=== PATIENT | male | born 1935 | race Caucasian/White ===

== ENCOUNTER 2017-11-01 05:20 | Day surgery (SDC) | payer OTHER, BC ==
[~2017-11-01] VITALS: Ht 193 cm; Wt 106.6 kg
--- NOTE | ~2017-11-01 | O ---
[facility] [place] [address] OPERATIVE REPORT Name: LIA HAWTHORNE Room #: DEP [facility]#: [id number] Admission: 11/01/17 Attend Phys: Wily Stone MD, F Discharge: 11/01/17 Date of : 35 Report #: [id number] THIS REPORT FOR: //name// CC: Bobby Gordo Stone DATE OF SERVICE: 11/01/2017 SURGEON: Wily Stone MD MARKETING DIRECTOR ASSISTED LIVING: Telma Orta NP PREOPERATIVE DIAGNOSIS: Symptomatic cholelithiasis. POSTOPERATIVE DIAGNOSIS: Symptomatic cholelithiasis, incarcerated umbilical hernia. PROCEDURE: Laparoscopic cholecystectomy with intraoperative cholangiogram, laparoscopic primary repair of incarcerated umbilical hernia. ANESTHESIA: General endotracheal anesthesia and local anesthetic. ESTIMATED BLOOD LOSS: 10 mL. SPECIMEN: Gallbladder. COMPLICATIONS: None appreciated. INDICATIONS FOR PROCEDURE: This is an 82-year-old male patient who developed acute onset right upper quadrant abdominal pain. He was seen in the [facility] Emergency Room where he was found to have cholelithiasis and sludge without sonographic evidence for acute cholecystitis. This occurred several weeks ago. Since that time, the patient has been relatively asymptomatic. He presents today for laparoscopic cholecystectomy with cholangiogram. OPERATIVE FINDINGS: Upon entrance into the abdominal cavity, the liver, stomach, small bowel and colon and the surrounding area appeared otherwise normal. The gallbladder itself was without acute inflammatory changes; however, some mild chronic changes were present. The critical view consisting of the cystic artery, cystic duct and lower edge of the gallbladder forming a window through which the liver was visible was seen prior to clipping the cystic duct for cholangiogram. The cholangiogram was normal without filling defects. Contrast flowed freely into the duodenal sweep and the biliary radicles appeared normal. After division of the cystic duct, 3 clips remained on the cystic duct stump. During removal of the gallbladder from the abdominal [facility] [address] [place] [address] OPERATIVE REPORT Name: LIA HAWTHORNE Room #: DEP [facility]#: [id number] Admission: 11/01/17 Attend Phys: Wily Stone MD, F Discharge: 11/01/17 Date of : 35 Report #: [id number] cavity, a small umbilical hernia defect incarcerated with a small amount of omentum was identified. This was amenable to primary repair with a separate figure-of-8 PDS suture. In addition, a small capsular tear of the liver was present that likely occurred with retraction of the gallbladder, located at the insertion of the falciform ligament on the liver. This required 5 mL of Surgiflo to ensure hemostasis. At the conclusion of the operation, the sponge, needle, and instrument counts were correct. The gallbladder was opened on the back table. Several small pigmented stones were seen within the gallbladder. DESCRIPTION OF PROCEDURE IN DETAIL: After the risks, benefits, and expectations of the operation were discussed in detail with the patient, informed consent was obtained. The patient was identified in the preoperative holding area. He was given IV antibiotics as documented in the chart in line with SCIP metrics. The patient was then taken to the operating room and he was placed in the supine position. SCDs were placed on the patient's bilateral lower extremities and pneumatic compression was initiated. The patient was then given IV sedation and he was intubated without incident. A time-out was performed to identify the correct patient and procedure after prepping and draping the patient in the standard sterile fashion. Local anesthetic was infiltrated into the skin and subcutaneous tissue supraumbilically where a curvilinear incision was made with a #15 blade scalpel. Dissection was carried down to the fascia. A small transverse fascial incision was made. The 11 mm Visiport was placed intraperitoneally with a 0-degree angled laparoscope. Pneumoperitoneum was achieved with insufflation of carbon dioxide to 15 mmHg. A 30-degree angled laparoscope was then inserted. A subxiphoid 5 mm and right subcostal 5 mm ports x 2 were placed under direct visualization after local anesthetic was infiltrated into the skin and subcutaneous tissue and appropriately sized incisions were made. Operative findings are as noted above. The dome of the gallbladder was retracted in a cephalad direction. The gallbladder peritoneum was then scored medially and laterally after taking down the chronic adhesions from the omentum to the gallbladder. A critical view consisting of the cystic artery and cystic duct was then visualized as noted above. A clip was placed on the cystic duct at its junction with the neck of the gallbladder. A ductotomy was created and a cholangiocatheter was inserted. The cholangiogram findings are as noted above. The cholangiocatheter was then removed. The cystic duct was triply clipped distal to the ductotomy and divided at the ductotomy with the ultrasonic dissector with a good seal on the duct. The cystic artery was divided with the ultrasound dissector with good hemostasis. The gallbladder was then dissected out of the liver bed. The gallbladder was placed in an Endopouch and removed through the supraumbilical port site. The 0 PDS suture was then placed to close the port site fascial defect. [address] [address] OPERATIVE REPORT Name: LIA HAWTHORNE Room #: DEP [facility]#: [id number] Admission: 11/01/17 Attend Phys: Wily Stone MD, F Discharge: 11/01/17 Date of : 35 Report #: [id number] The herniated omentum in the defect identified during removal of the gallbladder was then reduced. There was no bowel involvement. A figure-of-8 0 PDS suture was used to close the defect through a separate stab incision with the Isiah-Marie laparoscopic fascial closure device. The suture was tied under direct visualization to ensure no incorporation of intraabdominal content into the defect. The port site fascial suture was tagged and the port was replaced. The liver was then examined for hemostasis. The liver bed itself appeared normal; however, examination of the area where the falciform ligament inserted in the liver showed a small capsular tear with bleeding. This was hemostatic and not actively bleeding. The blood was suctioned from the area. Decision was made to apply Surgiflo (hemostatic agent) to the area with good hemostasis. No other significant intra-abdominal pathology was seen. The suture was tied under direct visualization to ensure no incorporation of intra-abdominal content. The abdominal cavity was then desufflated and the ports were removed. Interrupted subcuticular 4-0 Monocryl sutures and Dermabond were used to close the skin incisions. The patient tolerated the procedure well. He was awakened, extubated, and taken to recovery room in stable condition with no apparent intraoperative complications. <ELECTRONICALLY SIGNED> By: Wily Stone MD, FACS 11/04/17 1713 [id number] Wily Stone MD, FACS /nt
--- NOTE | ~2017-11-01 | S ---
[facility] [place] [address] SURGICAL PATH RPT PROCEDURE Name: GARCIA MEYER Room #: DEP [facility]#: [id number] Admission: 11/01/17 Date of : 35 Discharge: 11/01/17 Report #: [id number] Path Case #: [id number] PATHOLOGY REPORT COLLECTION DATE: 11/01/2017 RECEIVED DATE: 11/01/2017 SUBMITTING PHYS: Dr. Wily Stone OTHER PHYS: Dr. Bobby Caro SPECIMEN(S) RECEIVED: A.Gallbladder B.Contents incarcerated umbilical hernia * * * * * * * * * * * * FINAL DIAGNOSIS: A. Gallbladder, cholecystectomy: - Mild chronic cholecystitis. - Cholelithiasis. B. 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 (IUV:mgr; 11/02/2017) PATHOLOGIST: Kristin Ramon M.D. REPORT ELECTRONICALLY SIGNED BY: Kristin Ramon M.D. DATE/TIME: 11/02/2017 15:04 * * * * * * * * * * * * GROSS PATHOLOGY: A. Received in formalin labeled "Garcia Meyer, gallbladder," is a 6.5 x 4.4 x 1.1 cm, previously opened gallbladder with green wilson serosal surfaces. The opened gallbladder reveals wilson-brown to green mucosa and an average wall thickness of 0.2 cm. Multiple black smooth and gravel-like calculi are present measuring up to 1.5 cm and no masses are noted grossly. [employer] Conveyor Operator sections from the body and fundus are submitted along with the proximal margin in cassette A1. B. Received in formalin labeled "aGrcia Meyer, contents incarcerated umbilical hernia," is a segment of fibroadipose tissue measuring 5.5 x 3.3 x 1.5 cm. No nodules or lesions are identified. Ash Conveyor Operator tissue is submitted in cassette B1. (SDY; 11/01/2017) CLINICAL HISTORY: Symptomatic cholelithiasis [address] [address] SURGICAL PATH RPT PROCEDURE Name: GARCIA MEYER S Room #: [facility] M.R.#: [id number] Admission: 11/01/17 Date of : 35 Discharge: 11/01/17 Report #: [id number] Path Case #: [id number] INITIAL CPT CODE(S): A; 74910 B; 11998 Professional services performed by [facility] at [address] , [place] [address] Technical services performed by [facility] at [address] [place] [address], [place] [address] [address]. [facility] [address] [place] [address] PHONE: [phone] DIRECTOR: Brent Ghosh M.D. * * * END OF REPORT * * *
[~2017-11-01 05:20] MED LIST: ADVIL PM CAPLE1 EACH PO; ALEVE220 M1 PO; ASPIRIN81 M2 PO; BENADRYL25 MG PO; BRINTELLIX20 MG PO; CALCIUM 500 +1 EAC6 PO; CELEBREX 200 M200 M1 PO; CO Q-10100 M1 PO; COZAAR 50 MG TA50 M1 PO; FISH OIL + D31 EACH PO; GLUCOSAMINE H1500 MG PO; HYDROCODON-ACE1 EAC7 PO; LOVASTAT20 PO; MULTIVITAM9 MG/15 M1 PO; NORCO 10-325 T1 EACH PO; OXYCODONE HCL 55 MG PO; OXYCONTIN10 M1 PO; PANTOPRAZOLE SO40 M1 PO; PROBIOTIC1 EAC2 PO; SELENIMIN200 MCG PO; TAMSULOSIN HCL0.4 MG PO; TOPROL XL25 MG PO; TRAZODONE 150150 M1 PO; TRAZODONE HCL50 MG PO; TYLENOL PM EX-1 EACH PO; Trazodone HCL PO; UNICOMPLEX M TA1 TA1 PO; VITAMIN B-121000 MC3 PO; VITAMIN D31 ML PO; VITAMIN D35000 UNIT PO
[2017-11-01 07:10] VITALS: BP 122/79
[2017-11-01 09:42] VITALS: BP 122/79
== END 2017-11-01 10:35 | disposition home or self-care (01) ==
LOC: OR 05:20 → TBA 05:21 → OR 10:35
DX: K80.10 Calculus of gallbladder with chronic cholecystitis without obstruction (principal); K42.0 Umbilical hernia with obstruction, without gangrene; I10 Essential (primary) hypertension; G47.33 Obstructive sleep apnea (adult) (pediatric); E78.00 Pure hypercholesterolemia, unspecified; K21.9 Gastro-esophageal reflux disease without esophagitis; Z96.653 Presence of artificial knee joint, bilateral; Z87.891 Personal history of nicotine dependence; Z95.1 Presence of aortocoronary bypass graft; Z90.49 Acquired absence of other specified parts of digestive tract; Z98.890 Other specified postprocedural states; Z79.899 Other long term (current) drug therapy; Z88.0 Allergy status to penicillin; Z88.8 Allergy status to other drugs, medicaments and biological substances; Z79.82 Long term (current) use of aspirin
CPT/HCPCS: 50010; 50101; 50249; 50411; 50555; 50558; 50900; 50962; 51489; 51751; 51975; 52265; 53307; 54022; 54118; 55245; 55317; 56462; 56525; 56526; 62110; 62900; 70005